=== PATIENT | female | born 2000 | race African-American/Black ===

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

== ENCOUNTER 2020-08-02 12:30 | Inpatient (IN) ==
[2020-08-02 13:37] LABS: Urine Benzodiazepine Screen None Detected (None Detect); Urine Cannabinoids Screen None Detected (None Detect); Urine Opiates Screen None Detected (None Detect)
[2020-08-02 14:05] LABS: Hematocrit 39 % (35-47); Hemoglobin 12.2 g/dL (12.0-16.0); Red Blood Count 5.43 10^6 /uL (3.70-4.87); White Blood Count 6.5 10^3/uL (3.5-10.8)
[2020-08-02 14:06] LABS: ABS Eosinophils 0.2 10^3/ul (0-0.6); ABS Lymphocytes 1.9 10^3/ul (1.0-4.8); ABS Monocytes 0.6 10^3/ul (0-0.8); ABS Neutrophils 3.7 10^3/ul (1.5-7.7); Eosinophil % 2.6 %; Lymphocyte % 29.9 %; Mean Platelet Volume 6.7 fL (7.4-10.4); Nucleated Red Blood Cells % 0.1; Platelet Count 336 10^3/uL (150-450); Red Cell Distribution Width 14 % (10-15)
[2020-08-02] MEDS ORDERED: Al Hydrox/Mg Hydrox/Simet LIQ 30 ML UDC PO PRN (14:08)
[2020-08-02 14:20] LABS: ALT 9 U/L (7-52); AST 14 U/L (13-39); Albumin 4.6 g/dL (3.2-5.2); Albumin/Globulin Ratio 1.2 (1-3); Alkaline Phosphatase 60 U/L (34-104); Anion Gap 7 mmol/L (2-11); BUN/Creatinine Ratio 9.2 (8-20); Blood Urea Nitrogen 8 mg/dL (6-24); CO2 Carbon Dioxide 25 mmol/L (22-32); Calcium 9.6 mg/dL (8.6-10.3); Chloride 104 mmol/L (101-111); EGFR African American 100.4 (>60); Globulin 3.7 g/dL (2-4); Glucose 92 mg/dL (70-100); Potassium 3.8 mmol/L (3.5-5.0); Sodium 136 mmol/L (135-145); Total Protein 8.3 g/dL (6.4-8.9)
[2020-08-02 14:30] LABS: Acetaminophen < 15 mcg/mL; Alcohol, S < 10 mg/dL (<10); Salicylate < 2.50 mg/dL (<30)
[2020-08-02 14:36] LABS: HCG Pregnancy < 0.60 mIU/mL
[2020-08-02 14:41] LABS: Urine Appearance Clear; Urine Bilirubin Negative (Negative); Urine Blood 3+ (Negative); Urine Color Straw; Urine Glucose Negative (Negative); Urine Ketones Negative (Negative); Urine Nitrite Negative (Negative); Urine Protein Negative (Negative); Urine Specific Gravity 1.009 (1.010-1.030); Urine Urobilinogen Negative (Negative)
[2020-08-02 14:42] LABS: TSH Ultra Thyroid Stim Horm 0.74 mcIU/mL (0.34-5.60)
[2020-08-02 14:49] LABS: Urine Bacteria Absent (Absent); Urine Red Blood Cell 3+(>10/hpf) (Absent); Urine White Blood Cell Trace(0-5/hpf) (Absent)
[2020-08-02 15:11] LABS: Mean Corpuscular HGB Conc 32 g/dL (31-36); Mean Corpuscular Hemoglobin 23 pg (27-31); Mean Corpuscular Volume 71 fL (80-97)
[2020-08-02 15:12] LABS: Microcytosis 2+
[2020-08-03] MEDS: Vitamin THERAPEUTIC TAB PO SCH (08:49)
[2020-08-04] MEDS: Vitamin THERAPEUTIC TAB PO SCH (08:24)
[2020-08-05] MEDS: Vitamin THERAPEUTIC TAB PO SCH (08:21)
[2020-08-06] MEDS: Vitamin THERAPEUTIC TAB PO SCH (08:12)
[2020-08-06 09:46] VITALS: BP 100/66
== END 2020-08-06 13:25 | disposition home or self-care (01) | DRG 885 ==
LOC: ED 12:30 → BSU 14:09 → ED 16:09
PROVIDERS: ADMIT Psychiatry & Neurology Psychiatry; ATTEND Psychiatry & Neurology Psychiatry